=== PATIENT | female | born 1975 | race Caucasian/White ===

== ENCOUNTER 2021-08-24 10:06 | Emergency (ER) | payer BC ==
[~2021-08-24] VITALS: Ht 165.1 cm; Wt 62.6 kg
[2021-08-24] MEDS ORDERED: PREDNISONE20 M1 PO (10:58)
[2021-08-24] MEDS ORDERED: BUPROPION XL150 MG PO (10:58)
== END 2021-08-24 17:18 | disposition home or self-care (01) ==
LOC: ER 10:06
DX: R10.9 Unspecified abdominal pain (principal); N20.0 Calculus of kidney